=== PATIENT | male | born 1970 | race Caucasian/White ===

== ENCOUNTER 2017-06-17 09:59 | Day surgery (SDC) | payer MEDICARE, MEDICAID ==
[~2017-06-17 09:59] MED LIST: LIDOCAINE HCL 1% MPF SOL ONE; PROPOFOL 500 MG/50 ML EMU IV ONE
[2017-06-17 12:06] VITALS: BP 160/95; PULSE 53; RESP 18; TEMP 96.6; O2SAT 98
== END 2017-06-17 12:26 | disposition home or self-care (01) | DRG 379 ==
LOC: SURG 09:59
PROVIDERS: ATTEND Surgery
DX: K62.5 Hemorrhage of anus and rectum (principal); K57.30 Diverticulosis of large intestine without perforation or abscess without bleeding; K62.1 Rectal polyp
CPT/HCPCS: J2001; J2704

== ENCOUNTER 2017-09-29 09:55 | Day surgery (SDC) | payer MEDICARE, MEDICAID ==
[2017-09-29] MEDS ORDERED: ACETAZOLAMIDE 250 MG PO ONE (09:57)
[2017-09-29] MEDS ORDERED: FENTANYL 100MCG/2ML SOL ONE (10:15)
[2017-09-29] MEDS ORDERED: MIDAZOLAM 2 MG/2 ML SOL ONE (10:15)
[2017-09-29] MEDS: PROPARACAINE HCL 0.5% OPHTHALMIC SOL ONE ×3 (10:15→11:19)
[2017-09-29] MEDS: PHENYLEPHRINE HCL 10% OPHTHAL SOL ONE ×2 (10:15→10:28)
[2017-09-29] MEDS: KETOROLAC 0.5% OPTH 60 DROP SOL ONE ×2 (10:16→10:29)
[2017-09-29] MEDS: CYCLOPENTOLATE 1% SOL ONE ×2 (10:16→10:29)
[2017-09-29] MEDS ORDERED: BSS 500 ML 500 ML IR ONE (11:14)
[2017-09-29] MEDS ORDERED: POVIDONE IODINE 5% SOL ONE (11:14)
[2017-09-29] MEDS ORDERED: TRIAMCINOLONE ACETONIDE 40 MG/ML SUS ONE (11:14)
[2017-09-29] MEDS ORDERED: LIDOCAINE HCL 1% MPF SOL ONE (11:14)
[2017-09-29] MEDS: TRIAMCINOLONE ACETONIDE 10 MG/ML VIAL ONE ×2 (11:29→11:38)
[2017-09-29] MEDS ORDERED: CEFUROXIME SODIUM/0.9% NACL/PF 10 MG/ML VIAL IO ONE ×2 (11:30→11:38)
[2017-09-29 11:55] VITALS: PULSE 50; RESP 20; TEMP 97
[2017-09-29 12:02] VITALS: BP 163/102; O2SAT 97
== END 2017-09-29 12:10 | disposition home or self-care (01) | DRG 125 ==
LOC: SURG 09:55
PROVIDERS: ATTEND Ophthalmology
DX: H25.9 Unspecified age-related cataract (principal)
CPT/HCPCS: J2250; J3010; A9270-GY; J0697; J2001; J3300

== ENCOUNTER 2017-10-27 09:28 | Day surgery (SDC) | payer MEDICARE, MEDICAID ==
[2017-10-27] MEDS ORDERED: ACETAZOLAMIDE 250 MG PO ONE (09:31)
[2017-10-27 09:44] VITALS: PULSE 54
[2017-10-27] MEDS: PROPARACAINE HCL 0.5% OPHTHALMIC SOL ONE ×3 (09:50→10:59)
[2017-10-27] MEDS: PHENYLEPHRINE HCL 10% OPHTHAL SOL ONE ×2 (09:50→10:04)
[2017-10-27] MEDS: KETOROLAC 0.5% OPTH 60 DROP SOL ONE ×2 (09:51→10:05)
[2017-10-27] MEDS: CYCLOPENTOLATE 1% SOL ONE ×2 (09:51→10:04)
[2017-10-27] MEDS ORDERED: FENTANYL 100MCG/2ML SOL ONE (10:24)
[2017-10-27] MEDS ORDERED: MIDAZOLAM 2 MG/2 ML SOL ONE (10:25)
[2017-10-27] MEDS ORDERED: LIDOCAINE HCL 1% MPF SOL ONE (10:51)
[2017-10-27] MEDS ORDERED: BSS 500 ML 500 ML IR ONE (10:51)
[2017-10-27] MEDS ORDERED: POVIDONE IODINE 5% SOL ONE (10:51)
[2017-10-27 11:31] VITALS: BP 145/96; RESP 18; TEMP 97.4; O2SAT 96
== END 2017-10-27 11:50 | disposition home or self-care (01) | DRG 125 ==
LOC: SURG 09:28
PROVIDERS: ATTEND Ophthalmology
DX: H26.9 Unspecified cataract (principal)
CPT/HCPCS: J2250; J3010; A9270-GY; J2001